=== PATIENT | female | born 1985 | race Two or more races ===

== ENCOUNTER 2016-11-02 17:03 | Emergency (ER) | payer BC ==
[~2016-11-02] VITALS: Ht 152.4 cm; Wt 67.1 kg
[2016-11-02 17:03] VITALS: BP 104/86
[2016-11-02] MEDS ORDERED: RABIES IMMUNE GLOBULIN/PF 150 UNIT/ML VIAL IM ONE (17:30)
[2016-11-02] MEDS ORDERED: TDAP [DIPH/PERTUSSIS/TET] 0.5 ML VIAL IM ONE ×2 (17:30→17:33)
[2016-11-02] MEDS ORDERED: RABIES VACCINE (PCEC)/PF 1 EA KIT IM ONE ×2 (17:30→17:32)
--- NOTE | 2016-11-02 17:53 | NUR ---
PER PHARMACY WILL SEND RABIES IMMUNEGLOBULIN
== END 2016-11-02 18:33 | disposition home or self-care (01) ==
LOC: ER 17:06
DX: S61.251A Open bite of left index finger without damage to nail, initial encounter (principal); W53.21XA Bitten by squirrel, initial encounter; Y93.89 Activity, other specified; Y92.89 Other specified places as the place of occurrence of the external cause; Y99.9 Unspecified external cause status
CPT/HCPCS: 90375; 90715; A4606; Z7610

== ENCOUNTER 2016-11-05 18:49 | Emergency (ER) | payer BC ==
[2016-11-05] MEDS ORDERED: RABIES IMMUNE GLOBULIN/PF 150 UNIT/ML VIAL IM ONE (20:00)
[2016-11-05] MEDS ORDERED: RABIES VACCINE (PCEC)/PF 1 EA KIT IM ONE (20:00)
--- NOTE | 2016-11-05 20:47 | NUR ---
Pharmacy has medication in stock 1045 units of HRIG and 1 Rabies vaccination Pt. with extended wait time and LWBS. She states she will be coming in the AM for her medication. She also infomed me that she stopped taking Augmentin because it made her "sick" and was requesting a different antibiotic.
--- NOTE | 2016-11-05 20:52 | NUR ---
NOHEMY FOR TRIAGE; NO ANSWER. INFORMED BY ADMITTING PT LEFT.
== END 2016-11-05 20:53 | disposition left against medical advice (07) ==
LOC: ER 18:54
DX: Z53.21 Procedure and treatment not carried out due to patient leaving prior to being seen by health care provider (principal)
CPT/HCPCS: 90375

== ENCOUNTER 2016-11-06 17:01 | Emergency (ER) | payer BC ==
[~2016-11-06] VITALS: Ht 152.4 cm; Wt 67.1 kg
[2016-11-06 17:01] VITALS: BP 135/84
[2016-11-06] MEDS ORDERED: RABIES VACCINE (PCEC)/PF 1 EA KIT IM ONE ×2 (17:30→17:32)
== END 2016-11-06 18:00 | disposition home or self-care (01) ==
LOC: ER 17:02
DX: Z23 Encounter for immunization (principal); W53.21XD Bitten by squirrel, subsequent encounter; Y93.89 Activity, other specified; Y92.89 Other specified places as the place of occurrence of the external cause; Y99.9 Unspecified external cause status
CPT/HCPCS: A4606; Z7610